=== PATIENT | male | born 1980 | race African-American/Black ===

== ENCOUNTER 2017-02-16 12:07 | Emergency (ER) | payer MEDICARE, OTHER ==
[~2017-02-16] VITALS: Ht 180.3 cm; Wt 86.2 kg
== END 2017-02-16 14:20 | disposition home or self-care (01) ==
LOC: CFTX 12:07 → CED 12:07 → CFTX 13:24
DX: K64.4 Residual hemorrhoidal skin tags (principal); R35.0 Frequency of micturition; R19.7 Diarrhea, unspecified; J45.909 Unspecified asthma, uncomplicated
CPT/HCPCS: 99283